=== PATIENT | male | born 2000 | race Asian ===

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

== ENCOUNTER 2018-04-27 23:28 | Emergency (ER) | payer OTHER ==
[~2018-04-27] VITALS: Ht 172.7 cm; Wt 86.2 kg
--- NOTE | 2018-04-27 23:28 | NUR ---
BIB FRIEND C/O ABCESS TO L ARMPIT X 3 DAYS. VSS NAD. WILL CONTINUE TO MONITOR FOR ANY CHANGES DURING THE SHIFT.
[2018-04-28] MEDS ORDERED: CLINDAMYCIN HCL 150 MG CAPSULE PO ONE ×2 (01:00→01:27)
[2018-04-28] MEDS ORDERED: TRAMADOL HCL 50 MG TABLET PO ONE (01:00)
[2018-04-28] MEDS ORDERED: TRAMADOL HCL 50 MG TABLET ONE (01:27)
[2018-04-28] MEDS ORDERED: LIDOCAINE 1%-EPI 1:100,000 20 ML VIAL ONE (02:29)
[2018-04-28] MEDS ORDERED: LIDOCAINE 1%-EPI 1:200,000 SDV 10 ML VIAL IJ ONE (02:30)
--- NOTE | 2018-04-28 02:40 | NUR ---
ABCESS DRAINED. PARK GUARD TO BANDAGE WOUND.
[2018-04-28 02:58] VITALS: BP 129/81
== END 2018-04-28 02:59 | disposition home or self-care (01) ==
LOC: ER 23:28
DX: L02.414 Cutaneous abscess of left upper limb (principal)
CPT/HCPCS: A4606; A6402; J3490; Z7610

== ENCOUNTER 2018-04-30 22:57 | Emergency (ER) | payer OTHER ==
[~2018-04-30] VITALS: Ht 172.7 cm; Wt 86.2 kg
[2018-04-30 23:22] VITALS: BP 133/71
[2018-05-01] MEDS ORDERED: BACITRACIN ZINC OINT PACKET 1 EA PACKET TP ONE (00:24)
[2018-05-01] MEDS ORDERED: BACI/NEOM/POLY B OINT PKT 1 UDPKT PACKET TP ONE (00:30)
== END 2018-05-01 00:27 | disposition home or self-care (01) ==
LOC: ER 23:01
DX: L02.414 Cutaneous abscess of left upper limb (principal)
CPT/HCPCS: 99283; A4606; Z7610

== ENCOUNTER 2019-06-27 22:10 | Emergency (ER) | payer OTHER ==
[~2019-06-27] VITALS: Ht 177.8 cm; Wt 99.8 kg
[2019-06-27 23:00] VITALS: BP 133/81
--- NOTE | 2019-06-27 23:01 | NUR ---
BIBS. C/O "HAD HAND BLISTER, TURNED INTO ABSCESS" -SOB AOX4. AMBULATORY.
== END 2019-06-27 23:43 | disposition home or self-care (01) ==
LOC: ER 22:10
DX: S61.401A Unspecified open wound of right hand, initial encounter (principal); L03.123 Acute lymphangitis of right upper limb; X58.XXXA Exposure to other specified factors, initial encounter; Y93.89 Activity, other specified; Y92.89 Other specified places as the place of occurrence of the external cause; Y99.8 Other external cause status